=== PATIENT | female | born 1965 | race Caucasian/White ===

== ENCOUNTER → 2017-03-07 | Outpatient (CLI) | payer BC ==
--- NOTE | 2017-03-08 08:20 | MG ---
Examination: Bilateral screening mammogram. Clinical history: Routine screening. Technique: Digital CC and MLO views of both breasts were obtained. Computer aided detection analysis was performed and used during the interpretation. Comparison: 02/16/2016. Findings: The breasts are composed of scattered fibroglandular densities. No suspicious mass, area of architectural distortion or suspicious cluster of microcalcifications is noted. Impression: 1. No mammographic evidence of malignancy. BI-RADS category 1-negative. Recommend routine annual screening mammogram. Diagnostic CAD was utilized and reviewed. * 0 (ZERO) - ASSESSMENT INCOMPLETE; ADDITIONAL IMAGING IS NEEDED. * 0C - ASSESSMENT INCOMPLETE, NEEDS ADDITIONAL IMAGING EVALUATION AND/OR PRIOR MAMMOGRAMS FOR COMPAR GUI. * 1/ (ONE) - NEGATIVE. * 2/II (TWO) - BENIGN FINDINGS. * 3/III (THREE) - PROBABLY BENIGN FINDING; SHORT INTERVAL FOLLOW-UP SUGGESTED. * 4/IV (FOUR) - SUSPICIOUS ABNORMALITY; BIOPSY SHOULD BE CONSIDERED. * 5/V - HIGHLY SUSPICIOUS OF MALIGNANCY; BIOPSY SHOULD BE PERFORMED. * 6/IV - KNOWN BIOPSY PROVEN MALIGNANCY-APPROPRIATE ACTION SHOULD BE TAKEN. A NEGATIVE X-RAY REPORT SHOULD NOT DELAY BIOPSY IF A DOMINANT OR CLINICALLY SUSPICIOUS MASS IS PRESENT; 4 TO 8 PERCENT OF CANCERS ARE NOT IDENTIFIED BY X-RAY. A NEGATIVE REPORT MAY REINFORCE THE CLINICAL IMPRESSION. ADENOSIS AND DENSE BREASTS MAY OBSCURE AN UNDERLYING NEOPLASM. Reported By:
== END ==
LOC: RAD 08:34
PROVIDERS: ATTEND Specialist
DX: Z12.31 Encounter for screening mammogram for malignant neoplasm of breast (principal)
CPT/HCPCS: 77067

== ENCOUNTER 2017-09-23 09:46 | Emergency (ER) | payer BC ==
[2017-09-23 09:56] VITALS: BP 139/67; BMI 21.9
--- NOTE | 2017-09-23 09:58 | DR.GENAD ---
HPI - PCP Primary Care Physician: pauline - Complaint/Symptoms Chief Complaint Doctors Comments: Patient presents with complaint of left flank pain. She has been treated with antibiotics, initial medicine changed sonce c/s obtained. She continues to have left flank pain w/o fever. She was put on second antibiotic which has not decreased the pain. The report of the urine c/s is not available. Chief Complaint:: patient was called with a culture report 2 days ago and was told that the urine culture showed e.coli. has been on several antibiotics. Self Treatment fo Chief Complaint: seen dr simpson has been on rocephin, tetracycline,levaquain an macrobid - Source History Provided: Patient - Mode of Arrival Mode of Arrival: Ambulatory - Timing Onset of Chief Complaint: 09/20/17 PMH - PMH Past Medical History: Yes Past Medical History: GERD Past Surgical History: Yes Surgical History: , COIL CONNECTOR Surgery - Family History History of Family Medical Conditions: Yes Family Medical History: Diabetes Mellitus, Cancer, Sudden Cardiac , Hypertension - Social History Does patient currently use any type of tobacco product: No Have you used tobacco products in the last 12 months: No Type of Tobacco Use: None Does any household member use tobacco: No Alcohol Use: None Do you use any recreational Drugs:: No Lives With: Family Lives Where: Home - infectious screening In the last 2 months have you had wt loss of >10#?: NO Have you had fever, night sweats or hemotysis?: No Have you traveled outside the country in the last 6 months?: No Isolation: Standard ROS - Review of Systems Eyes: No Symptoms Reported ENTM: No Symptoms Reported Respiratoy: No Symptoms Reported Cardiovascular: No Symptoms Reported Gastrointestinal/Abdominal: No Symptoms Reported Genitourinary: Hematuria, Other (left flank pain) Neurological: No Symptoms Reported Musculoskeletal: No Symptoms Reported Integumentary: No Symptoms Reported Hematologic/Lymphatic: No Symptoms Reported Endocrine: No Symptoms Reported Psychiatric: No Symptoms Reported All Other Systems: Reviewed and Negative PE - Vital Signs Vitals: Temperature 99.9 F Pulse Rate 99 Respiratory Rate 18 Blood Pressure 139/67 O2 Sat by Pulse Oximetry 100 - General General Appearance: Alert - Head Head Exam: Normal Inspection, Atraumatic - Eyes Eye exam: Normal Appearance, PERRL, EOMI - ENT ENT Exam: Normal Exam, Normal Oropharynx External Ear Exam: Normal External Inspection TM/Canal Exam: Bilateral Normal Nose Exam: Normal Nose Exam Mouth Exam: Normal Inspection Throat Exam: Normal Inspection - Neck Neck Exam: Normal Inspection - Chest Chest Inspection: Normal Inspection - Respiratory Respiratory Exam: Normal Lung Sounds Bilat Respiratory Exam: Bilateral Clear to Auscultation - Cardiovascular Cardiovascular Exam: Regular Rate, Normal Rhythm - Abdominal Exam Abdominal Exam: Normal Inspection Abdominal Tenderness: negative: RUQ, RLQ, LUQ, LLQ, Epigastrium, Suprapubic, Diffuse, Mild, Moderate, Severe, Other - Extremities Extremities Exam: Normal Inspection, Full ROM - Back Back Exam: Normal Inspection, Full ROM, Tenderness (left flank) - Neurologic Neurological Exam: Alert, Oriented X3, CN II-XII Intact - Psychiatric Psychiatric Exam: Normal Affect, Normal Mood - Skin Skin Exam: Warm, Dry, Intact Course - Reevaluation 1st: Improved (139/67. Cardiac enzymes decreasing @1200 Tl.1.63 from 1.87;EKG No change.) - Consultation Called: 12:00 (Dr Rosas stated that patient can be followed as out patient, but will glad to see if he needs to come now.) Consultation Comments: Since patient presented with complaint of severe headache , CT scan negative. BP controlled; will let patient follow up with his customer marketing manager as out patient per patient. - Education/Counseling Educated On: Treatment, Diagnosis, Prognosis, Needs for Follow Up ROR - Labs Reviewed Result Diagrams: 09/23/17 10:28 09/23/17 10:28 Laboratory: WBC 6.1 X10^3/uL (3.6-10.0) 09/23/17 10:28 RBC 4.39 X10^6/uL (3.5-5.4) 09/23/17 10:28 Hgb 13.4 g/dL (12.0-16.0) 09/23/17 10:28 Hct 39.1 % (36.0-47.0) 09/23/17 10:28 MCV 89.2 fL (80.0-100.0) 09/23/17 10:28 MCH 30.5 pg (27.0-34.0) 09/23/17 10:28 MCHC 34.2 g/dL (33.0-35.0) 09/23/17 10:28 RDW 12.1 % (11.6-16.5) 09/23/17 10:28 Plt Count 270 X10^3/uL (150.0-450.0) 09/23/17 10:28 MPV 8.9 fL (7.4-11.0) 09/23/17 10:28 Neut % 60.4 % (42.0-75.0) 09/23/17 10:28 Lymph % 31.6 % (21.0-51.0) 09/23/17 10:28 [place] % 6.7 % (0.0-13.0) 09/23/17 10:28 Eos % 0.9 % (0.9-2.9) 09/23/17 10:28 Baso % 0.4 % (0.2-1.0) 09/23/17 10:28 Neut # 3.7 x10^3/uL (2.2-4.8) 09/23/17 10:28 Lymph # 1.9 X10^3/uL (1.3-2.9) 09/23/17 10:28 [place] # 0.4 x10^3/uL (0.3-0.8) 09/23/17 10:28 Eos # 0.1 x10^3/uL (0.0-0.2) 09/23/17 10:28 Baso # 0.0 X10^3/uL (0.0-0.1) 09/23/17 10:28 Absolute Nucleated RBC 0.1 /100WBC 09/23/17 10:28 Sodium 141 mmol/L (136-145) 09/23/17 10:28 Corrected Sodium TNP 09/23/17 10:28 Potassium 3.8 mmol/L (3.5-5.1) 09/23/17 10:28 Chloride 102 mmol/L (98-107) 09/23/17 10:28 Carbon Dioxide 31.3 mmol/L (21-32) 09/23/17 10:28 BUN 22 mg/dL (7-18) H 09/23/17 10:28 Creatinine 0.78 mg/dL (0.55-1.02) 09/23/17 10:28 Est GFR (MDRD) Af Amer > 60 (>60) 09/23/17 10:28 Est GFR (MDRD) Non-Af > 60 (>60) 09/23/17 10:28 Glucose 79 mg/dL (65-99) 09/23/17 10:28 Calcium 9.9 mg/dL (8.5-10.1) 09/23/17 10:28 C-Reactive Protein 2.30 mg/L (0-3.0) 09/23/17 10:28 Specimen Type Clean catch urine 09/23/17 10:00 Urine Color Yellow (YELLOW) 09/23/17 10:00 Urine Appearance Clear (CLEAR) 09/23/17 10:00 Urine pH 7.0 (5.0 - 8.0) 09/23/17 10:00 Ur Specific [place] 1.010 (1.000-1.030) 09/23/17 10:00 Urine Protein Negative (NEGATIVE) 09/23/17 10:00 Urine Glucose (UA) Negative (NEGATIVE) 09/23/17 10:00 Urine Ketones Negative (NEGATIVE) 09/23/17 10:00 Urine Occult Blood 2+ (NEGATIVE) 09/23/17 10:00 Urine Nitrite Negative (NEGATIVE) 09/23/17 10:00 Urine Bilirubin Negative (NEGATIVE) 09/23/17 10:00 Urine Urobilinogen Normal (NORMAL) 09/23/17 10:00 Ur Leukocyte Esterase Negative (NEGATIVE) 09/23/17 10:00 Urine RBC 0 - 3 /HPF (NEGATIVE) 09/23/17 10:00 Urine WBC Rare /HPF (NEGATIVE) 09/23/17 10:00 Ur Squamous Epith Cells Rare /HPF (NEGATIVE) 09/23/17 10:00 Amorphous Sediment Trace /HPF (NEGATIVE) 09/23/17 10:00 Urine Bacteria Trace /HPF (NEGATIVE) 09/23/17 10:00 Ur Culture Indicated? No/not indicated 09/23/17 10:00 - Diagnosis Discharge Problem: Hypertensive urgency, Lipoma of forehead Maxillary sinusitis Qualifiers: Chronicity: unspecified Qualified Code(s): J32.0 - Chronic maxillary sinusitis - Discharge Plan Condition: Stable - Follow ups/Referrals Follow ups/Referrals: CHAUNCEY DIAZ [Primary Care Provider] - 3 days - Instructions
[2017-09-23 10:09] LABS: BILIRUBIN,URINE NEGATIVE (NEGATIVE); BLOOD/HEMOGLOBIN,URINE 2+ (NEGATIVE); GLUCOSE, URINE NEGATIVE (NEGATIVE); KETONES,URINE NEGATIVE (NEGATIVE); LEUKOCYTE ESTERASE ,URINE NEGATIVE (NEGATIVE); NITRITES,URINE NEGATIVE (NEGATIVE); PROTEIN,URINE NEGATIVE (NEGATIVE); UROBILINOGEN,URINE NORMAL (NORMAL)
[2017-09-23 10:22] LABS: AMORPHOUS SEDIMENT,UR TRACE /HPF (NEGATIVE); APPEARANCE,URINE CLEAR (CLEAR); BACTERIA,URINE TRACE /HPF (NEGATIVE); COLOR,URINE YELLOW (YELLOW); RBC,URINE 0 - 3 /HPF (NEGATIVE); SQUAMOUS EPITHELIAL CELL,UR RARE /HPF (NEGATIVE)
[2017-09-23 10:44] LABS: BLOOD UREA NITROGEN 22 mg/dL (7-18); CALCIUM 9.9 mg/dL (8.5-10.1); CARBON DIOXIDE 31.3 mmol/L (21-32); CHLORIDE 102 mmol/L (98-107); CREATININE 0.78 mg/dL (0.55-1.02); SODIUM 141 mmol/L (136-145); eGFR BLACK RACES > 60 (>60); eGFR NON BLACK RACES > 60 (>60)
[2017-09-23] MEDS ORDERED: TORADOL 30 MG VIAL IVP ONE (10:48)
[2017-09-23] MEDS ORDERED: TORADOL 30 MG VIAL ONE (10:50)
[2017-09-23 10:51] LABS: BASOPHILS % (AUTO) 0.4 % (0.2-1.0); EOSINOPHILS # (AUTO) 0.1 x10^3/uL (0.0-0.2); EOSINOPHILS % (AUTO) 0.9 % (0.9-2.9); HEMATOCRIT 39.1 % (36.0-47.0); HEMOGLOBIN 13.4 g/dL (12.0-16.0); LYMPHOCYTES # (AUTO) 1.9 X10^3/uL (1.3-2.9); LYMPHOCYTES % (AUTO) 31.6 % (21.0-51.0); MEAN CORPUSCULAR HEMOGLOBIN 30.5 pg (27.0-34.0); MEAN CORPUSCULAR HGB CONC 34.2 g/dL (33.0-35.0); MEAN CORPUSCULAR VOLUME 89.2 fL (80.0-100.0); MEAN PLATELET VOLUME 8.9 fL (7.4-11.0); MONOCYTES # (AUTO) 0.4 x10^3/uL (0.3-0.8); MONOCYTES % (AUTO) 6.7 % (0.0-13.0); NEUTROPHILS # (AUTO) 3.7 x10^3/uL (2.2-4.8); NEUTROPHILS % (AUTO) 60.4 % (42.0-75.0); PLATELET COUNT 270 X10^3/uL (150.0-450.0); RED BLOOD COUNT 4.39 X10^6/uL (3.5-5.4); RED CELL DISTRIBUTION WIDTH 12.1 % (11.6-16.5); WHITE BLOOD COUNT 6.1 X10^3/uL (3.6-10.0)
--- NOTE | 2017-09-23 11:46 | CT ---
HISTORY: Urinary tract infection Study: Computed tomography of the abdomen and pelvis: Multiple axial images were obtained throughou t the abdomen and pelvis. Oral contrast was not administered. Intravascular contrast was not admini stered. Radiation dose reduction techniques utilized. Comparison: None Findings: Examination of the lung bases demonstrate no evidence of pleural effusions, parenchymal infiltrates p ulmonary nodules. The heart size is normal. Examination of the abdomen demonstrates no focal lesions of the liver or spleen. A small splenic lob ule is noted. The gallbladder is normal. The pancreas as visualized is normal. The adrenal glands are normal. Small extrarenal pelves are noted bilaterally. I see no evidence of renal mass or hydro nephrosis. Very questionable tiny nonobstructing calculi in left kidney. No appreciable perinephric stranding is present. Minimal atherosclerotic changes noted in the abdominal aorta. No evidence of retroperitoneal lymph node enlargement is noted. The ureters are nondilated. The uterus is present and midline. Tiny calcifications are present within the anatomic pelvis, most likely phleboliths. I cannot exclude the possibility of a 1-2 mm nonobstructing calculus in the distal left ureter just s uperior to the ureter0-vesical junction.. The bladder contour is smooth. No appreciable perivesical soft tissue stranding is noted. The urinary bladder is not thick walled. No evidence of ascites is present. A very tiny fat containing umbilical hernia is noted. The stomach is nondistended. The duodenum is normal in its appearance. The small bowel is normal in its appearance. The terminal ileum is normal. No evidence of mesenteric adenopathy is identified. The appendix is normal and is retrocecal lesion located and extends up to the inferior right lobe of the liver. A moderate amount of stool is present in the ascending colon. The transverse colon is m oderately redundant extending well into the anatomic pelvis. The descending colon shows a couple div erticula. The sigmoid colon is mildly redundant and displays a few diverticula. Very minimal soft t issue stranding is noted around the mid sigmoid colon. I cannot exclude early diverticulitis. The r egion of the rectum is normal. Examination of the bone windows demonstrate no acute abnormalities. Minimal lumbar spondylosis is no tracey. No appreciable degenerative changes noted in the hips. IMPRESSION: 1. Diverticulosis predominating in the sigmoid colon. There is very minimal soft tissue stranding a round the mid sigmoid colon that may be on the basis of early diverticulitis. It is possible this co uld be scarring from prior diverticulitis. Clinical correlation is recommended. 2. 1-2 mm calcification projected along the course of the distal left ureter just superior to the ur eterovesical junction. This could be a minimally or non obstructing distal left ureteral calculus ve rsus a tiny phlebolith. 3. There appear to be tiny amorphous calcifications in the left kidney. These could represent tiny c alculi. No evidence of hydronephrosis is noted on either side. No evidence of ureteral dilatation i s present. Reported By:
== END 2017-09-23 13:17 | disposition home or self-care (01) ==
LOC: ER 09:56
DX: K57.30 Diverticulosis of large intestine without perforation or abscess without bleeding (principal); N20.1 Calculus of ureter; N28.89 Other specified disorders of kidney and ureter
CPT/HCPCS: 36415; 74176; 80048; 81001; 85025; 86140; 96365; 96374; 99283; A4222; J1885